=== PATIENT | female | born 1995 | race American Indian/Alaskan Native ===

== ENCOUNTER 2018-06-27 10:55 | Emergency (ER) | payer SELFPAY ==
--- NOTE | 2018-06-27 11:15 | Emergency Department Report ---
Chief Complaint: Extremity Injury, Lower Stated Complaint: PAIN ON (R) FOOT Time Seen by Provider: 06/27/18 11:13 - HPI History of Present Illness: SEEN AT [facility] SP FALL AND PAIN R LAT MAL AREA XRAY WAS NEG REFERRAL TO ORTHO DID NOT GO SHE STATES SWELLING DOWN BUT SHE WORKS LONG DAYS AND SHE WANTS TO BE SURE IT IS OK AMBULATORY. DP PLUS 2 FULL ROM NEEDS TO FOLLOW UP WITH ORTHO MSE COMPLETED - Exam Vital Signs: Vital Signs 06/27/18 11:03 Temperature 99.1 F Pulse Rate 87 Respiratory 18 Rate Blood Pressure 121/76 O2 Sat by Pulse 99 Oximetry MSE screening note: Focused history and physical exam performed. Due to findings the following was ordered: ED Disposition for MSE Condition: Stable
--- NOTE | 2018-06-27 12:31 | Emergency Department Report ---
HPI - General Chief Complaint: Extremity Injury, Lower Time Seen by Provider: 06/27/18 11:13 - HPI HPI: SEEN AT [facility] FALL AND PAIN R LAT MAL AREA XRAY WAS NEG REFERRAL TO ORTHO DID NOT GO SHE STATES SWELLING DOWN BUT SHE WORKS LONG DAYS AND SHE WANTS TO BE SURE IT IS OK AMBULATORY. DP PLUS 2 FULL ROM NEEDS TO FOLLOW UP WITH ORTHO ED Past Medical Hx - Past Medical History Previous Medical History?: No - Surgical History Past Surgical History?: No - Social History Smoking Status: Never Smoker Substance Use Type: None - Medications Home Medications: Home Medications Medication Instructions Recorded Confirmed Last Taken Type Ibuprofen [Motrin] 800 mg PO Q8HR PRN #10 tablet 06/27/18 Unknown Rx ED Review of Systems ROS: Stated complaint: PAIN ON (R) FOOT Other details as noted in HPI Comment: All other systems reviewed and negative Cardiovascular: denies: chest pain, palpitations Endocrine: denies: flushing Gastrointestinal: as per HPI. denies: abdominal pain Musculoskeletal: joint swelling. denies: myalgia Physical Exam - Physical Exam Vital Signs: Vital Signs 06/27/18 11:03 Temperature 99.1 F Pulse Rate 87 Respiratory 18 Rate Blood Pressure 121/76 O2 Sat by Pulse 99 Oximetry Physical Exam: Physical Exam: - General Limitations: No Limitations General appearance: alert, in no apparent distress. - Head Head exam: Present: atraumatic, normocephalic - Eye Eye exam: Present: normal appearance - ENT ENT exam: Present: mucous membranes moist - Neck Neck exam: Present: normal inspection - Respiratory Respiratory exam: Present: normal lung sounds bilaterally. Absent: respiratory distress - Cardiovascular Cardiovascular Exam: Present: normal rhythm. Absent: systolic murmur, diastolic murmur, rubs, gallop - GI/Abdominal GI/Abdominal exam: Present: soft, normal bowel sounds - Extremities Exam Extremities exam: Present: Right foot tenderness - Back Exam Back exam: Present: normal inspection - Neurological Exam Neurological exam: Present: alert, oriented X3 - Psychiatric Psychiatric exam: normal affect and mood - Skin Skin exam: Present: warm, dry, intact, normal color. Absent: rash ED Course Vital Signs 06/27/18 11:03 Temperature 99.1 F Pulse Rate 87 Respiratory 18 Rate Blood Pressure 121/76 O2 Sat by Pulse 99 Oximetry Critical care attestation.: If time is entered above; I have spent that time in minutes in the direct care of this critically ill patient, excluding procedure time. ED Disposition Clinical Impression: Contusion of right foot Qualifiers: Encounter type: initial encounter Qualified Code(s): S90.31XA - Contusion of right foot, initial encounter Disposition: TO HOME OR SELFCARE Is pt being admited?: No Does the pt Need Aspirin: No Condition: Stable Prescriptions: Ibuprofen [Motrin] 800 mg PO Q8HR PRN #10 tablet PRN Reason: Pain, Moderate (4-6) Referrals: ARNOLDO RAMIREZ MD [Primary Care Provider] - 3-5 Days
--- NOTE | 2018-06-27 13:03 | XRay Report ---
RIGHT FOOT, 3 views: History: Pain The bony architecture is intact. Bony alignment is normal. No soft tissue abnormalities are seen. The joint spaces appear preserved. IMPRESSION: Normal right foot.
[2018-06-27 20:45] VITALS: BP 121/76
== END 2018-06-27 13:07 | disposition home or self-care (01) ==
LOC: ED 10:55
DX: S90.31XA Contusion of right foot, initial encounter (principal); W01.198A Fall on same level from slipping, tripping and stumbling with subsequent striking against other object, initial encounter; Y93.89 Activity, other specified; Y92.89 Other specified places as the place of occurrence of the external cause; Y99.8 Other external cause status
CPT/HCPCS: 99283

== ENCOUNTER 2018-11-16 16:21 | Emergency (ER) | payer SELFPAY ==
--- NOTE | 2018-11-16 16:32 | Emergency Department Report ---
Blank Doc - Documentation Documentation: This is a 23-year-old female that was sent by [facility] for possible ectopic pregn tray. Stated is about 5 -6 weeks . Dneis any vaginal bleeding. This initial assessment/diagnostic orders/clinical plan/treatment(s) is/are subject to change based on patient's health status, clinical progression and re- assessment by fellow clinical providers in the ED. Further treatment and workup at subsequent clinical providers discretion. Patient/guardians urged not to elope from the ED as their condition may be serious if not clinically assessed and managed. Initial orders include: 1- Patient sent to [facility] for further evaluation and treatment 2- UA 3- labs 4- US OB
[2018-11-16 17:12] LABS: Basophils # (Auto) 0.1 K/mm3 (0.0-0.1); Basophils % (Auto) 0.5 % (0.0-1.8); Eosinophils # (Auto) 0.1 K/mm3 (0.0-0.4); Eosinophils % (Auto) 1.1 % (0.0-4.3); Hematocrit 37.4 % (30.3-42.9); Hemoglobin 12.7 gm/dl (10.1-14.3); Lymphocytes # (Auto) 4.3 K/mm3 (1.2-5.4); Lymphocytes % (Auto) 36.2 % (13.4-35.0); Mean Corpuscular HGB Conc 34 % (30-34); Mean Corpuscular Volume 78 fl (79-97); Monocytes # (Auto) 0.5 K/mm3 (0.0-0.8); Monocytes % (Auto) 4.1 % (0.0-7.3); Platelet Count 359 K/mm3 (140-440); Red Blood Count 4.83 M/mm3 (3.65-5.03); Red Cell Distribution Width 15.7 % (13.2-15.2)
[2018-11-16 17:27] LABS: BUN/Creatinine Ratio 10; Blood Urea Nitrogen 7 mg/dL (7-17); Calcium 9.3 mg/dL (8.4-10.2); Hemolysis Index 1
[2018-11-16 18:42] LABS: Bilirubin,Urine NEG (Negative); Blood,Urine NEG (Negative); Color,Urine Amber (Yellow); Mucus,Urine 3+ /HPF; Urobilinogen,Urine < 2.0 mg/dL (<2.0)
--- NOTE | 2018-11-16 19:09 | Ultrasound Report ---
At OB ultrasound FINDINGS: The uterus measures 7.4 x 3.5 x 4.5 cm and is empty. Endometrial stripe is normal at 1 cm. The right ovary measures 2.8 x 1.8 x 1.9 cm and is normal with the left ovary measuring 3.5 x 1.5 x 1 .6 cm. Left ovary is normal as well. No hemorrhage or free fluid. No abnormality seen. IMPRESSION: Negative pelvic ultrasound. No IUP or ectopic seen. Signer Name: Humberto Brown MD Signed: 11/16/2018 7:04 PM Workstation Name: [id number]
[2018-11-16] MEDS ORDERED: TYLENOL PO ONE (19:45)
--- NOTE | 2018-11-16 20:23 | Emergency Department Report ---
ED Abdominal Pain HPI - General Chief Complaint: Abdominal Pain Stated Complaint: LFT SIDE PELVIC PAIN/DOC ORDERED Time Seen by Provider: 11/16/18 16:31 Source: patient Mode of arrival: Ambulatory Limitations: No Limitations - History of Present Illness Initial Comments: Patient is A0 23 year-old female who is approximately 3 weeks gestation who presents to the ED with complaint of left lower quadrant abdominal pain for 2 days. Patient states that the pain is persistent and worse with any movement or palpation. Patient denies fever, chills, nausea, vomiting, diarrhea, dysuria, urinary frequency and urgency, vaginal discharge, vaginal bleeding, no back pain, dizziness, sore throat or cough and dyspareunia. Patient states that she was evaluated at these [facility] at [facility] and advised to come to the ED for evaluation and rule out ectopic . The patient states that she has not taken any medications for pain. MD Complaint: abdominal pain (LLQ ) -: Sudden, days(s) (2) Location: LLQ Migration to: no migration Severity scale (0 -10): 3 Quality: aching, dull Consistency: constant Improves With: nothing Worsens With: nothing Associated Symptoms: denies other symptoms. denies: nausea, vomiting, diarrhea, fever, chills, constipation, dysuria, hematemesis, hematochezia, melena, hematuria, anorexia, syncope - Related Data LMP Date: 10/12/18 Previous Rx's Medication Instructions Recorded Last Taken Type Ibuprofen [Motrin] 800 mg PO Q8HR PRN #10 tablet 06/27/18 Unknown Rx Acetaminophen [Acetaminophen TAB] 1,000 mg PO Q6HR PRN #20 tablet 11/16/18 Unknown Rx Allergies Allergy/AdvReac Type Severity Reaction Status Date / Time No Known Allergies Allergy Unverified 06/27/18 10:57 ED Review of Systems ROS: Stated complaint: LFT SIDE PELVIC PAIN/DOC ORDERED Other details as noted in HPI Constitutional: denies: chills, fever Eyes: denies: eye pain, eye discharge, vision change ENT: denies: ear pain, throat pain Respiratory: denies: cough, shortness of breath, wheezing Cardiovascular: denies: chest pain, palpitations Endocrine: no symptoms reported Gastrointestinal: abdominal pain (LLQ). denies: nausea, diarrhea Genitourinary: denies: urgency, dysuria, discharge Musculoskeletal: denies: back pain, joint swelling, arthralgia Skin: denies: rash, lesions Neurological: denies: headache, weakness, paresthesias Psychiatric: denies: anxiety, depression Hematological/Lymphatic: denies: easy bleeding, easy bruising ED Past Medical Hx - Past Medical History Previous Medical History?: No - Surgical History Past Surgical History?: No - Social History Smoking Status: Never Smoker Substance Use Type: None - Medications Home Medications: Home Medications Medication Instructions Recorded Confirmed Last Taken Type Ibuprofen [Motrin] 800 mg PO Q8HR PRN #10 tablet 06/27/18 Unknown Rx Acetaminophen [Acetaminophen TAB] 1,000 mg PO Q6HR PRN #20 tablet 11/16/18 Unknown Rx ED Physical Exam - General Limitations: No Limitations General appearance: alert, in no apparent distress - Head Head exam: Present: atraumatic, normocephalic, normal inspection - Eye Eye exam: Present: normal appearance, PERRL, EOMI Pupils: Present: normal accommodation - ENT ENT exam: Present: normal exam, normal orophraynx, mucous membranes moist, TM's normal bilaterally, normal external ear exam - Neck Neck exam: Present: normal inspection - Respiratory Respiratory exam: Present: normal lung sounds bilaterally. Absent: respiratory distress, wheezes, rales, rhonchi, chest wall tenderness, accessory muscle use, decreased breath sounds, prolonged expiratory - Cardiovascular Cardiovascular Exam: Present: normal rhythm, tachycardia, normal heart sounds. Absent: systolic murmur, diastolic murmur, rubs, gallop - GI/Abdominal GI/Abdominal exam: Present: soft, tenderness (Mildly tender LLQ area on palpation, no guarding or rebound), normal bowel sounds - Rectal Rectal exam: Present: deferred - Extremities Exam Extremities exam: Present: normal inspection, full ROM, normal capillary refill - Back Exam Back exam: Present: normal inspection, full ROM. Absent: tenderness, CVA tenderness (R), CVA tenderness (L), muscle spasm, paraspinal tenderness - Neurological Exam Neurological exam: Present: alert, oriented X3, CN II-XII intact, normal gait, reflexes normal - Psychiatric Psychiatric exam: Present: normal affect, normal mood - Skin Skin exam: Present: warm, dry, intact, normal color. Absent: rash ED Course Vital Signs 11/16/18 16:31 Temperature 99.1 F Pulse Rate 123 H Respiratory 18 Rate Blood Pressure 140/86 [Left] O2 Sat by Pulse 100 Oximetry - Reevaluation(s) Reevaluation #1: 11/16/18 20:34 This is a 23-year-old female who is currently approximately 3 weeks gestation who presented to the ED with complaint of left lower quadrant abdominal pain. In the ED, patient is alert and oriented 3 and is in distress, although tachycardic in triage. Lab test results were reviewed and shows hCG Quant of 747.7, acute leukocytosis of 12,000 and mild hypokalemia of 3.2 mmol per liter. The rest of the lab test results are unremarkable and not nonactionable including urinalysis. Patient was treated for pain in the ED with Tylenol. Pelvic ultrasound and transvaginal ultrasound show normal blood flow in both ovaries and normal endometrial stripe. There is no IUP or ectopic seen due to the fact that the is still too early since the last menstrual period was 10/12/2018. On reevaluation, patient's pain is well controlled with medications, and tachycardia resolved with treatment in the ED. Patient was discharged home and advised to maintain a complete pelvic rest and to return to the ED or to the [facility] physician in 48 hours for repeat of the hCG Quant studies planned. Patient was otherwise advised to follow up with the [facility] physician in 3-5 days for reevaluation or return to the ED immediately if symptoms get worse. 11/16/18 20:39 ED Medical Decision Making - Lab Data Result diagrams: 11/16/18 03:53 11/16/18 16:51 - Radiology Data Radiology results: report reviewed, image reviewed Findings [address] [address] Ultrasound Report Signed Patient: DANNY FRANCO MR#: [id number] : 1995 Acct:[id number] Age/Sex: 23 / F ADM Date: 11/16/18 Loc: ED Attending Dr: Ordering Physician: LINDEN ESPAÑA NP Date of Service: 11/16/18 Procedure(s): US OB transvaginal Accession Number(s): [id number] cc: LINDEN ESPAÑA NP At OB ultrasound FINDINGS: The uterus measures 7.4 x 3.5 x 4.5 cm and is empty. Endometrial stripe is normal at 1 cm. The right ovary measures 2.8 x 1.8 x 1.9 cm and is normal with the left ovary measuring 3.5 x 1.5 x 1.6 cm. Left ovary is normal as well. No hemorrhage or free fluid. No abnormality seen. IMPRESSION: Negative pelvic ultrasound. No IUP or ectopic seen. Signer Name: Humberto Brown MD Signed: 11/16/2018 7:04 PM Workstation Name: [id number] Transcribed By: JM Dictated By: Humberto Brown MD Electronically Authenticated By: Humberto Brown MD Signed Date/Time: 11/16/181903 DD/ 02 TD/TT: Findings [facility] [address] [place] [address] Ultrasound Report Signed Patient: DANNY FRANCO MR#: [id number] : 1995 Acct:[id number] Age/Sex: 23 / F ADM Date: 11/16/18 Loc: ED Attending Dr: Ordering Physician: LINDEN ESPAÑA NP Date of Service: 11/16/18 Procedure(s): US OB <= 14 weeks fetus Accession Number(s): [id number] cc: LINDEN ESPAÑA NP At OB ultrasound FINDINGS: The uterus measures 7.4 x 3.5 x 4.5 cm and is empty. Endometrial stripe is normal at 1 cm. The right ovary measures 2.8 x 1.8 x 1.9 cm and is normal with the left ovary measuring 3.5 x 1.5 x 1.6 cm. Left ovary is normal as well. No hemorrhage or free fluid. No abnormality seen. IMPRESSION: Negative pelvic ultrasound. No IUP or ectopic seen. Signer Name: Humberto Brown MD Signed: 11/16/2018 7:04 PM Workstation Name: [id number] Transcribed By: LAKESHA Dictated By: Humberto Brown MD Electronically Authenticated By: Humberto Brown MD Signed Date/Time: 11/16/181903 - Medical Decision Making This is a 23-year-old female who is currently approximately 3 weeks gestation who presented to the ED with complaint of left lower quadrant abdominal pain. In the ED, patient is alert and oriented 3 and is in distress, although tachycardic in triage. Lab test results were reviewed and shows hCG Quant of 747.7, acute leukocytosis of 12,000 and mild hypokalemia of 3.2 mmol per liter. The rest of the lab test results are unremarkable and not nonactionable includi ng urinalysis. Patient was treated for pain in the ED with Tylenol. Pelvic ultrasound and transvaginal ultrasound show normal blood flow in both ovaries and normal endometrial stripe. There is no IUP or ectopic seen due to the fact that the is still too early since the last menstrual period was 10/12/2018. On reevaluation, patient's pain is well controlled with medications and tachycardia resolved with treatment in the ED. Patient was discharged home and advised to maintain a complete pelvic rest and to return to the ED or to the [facility] physician in 48 hours for repeat of the hCG Quant studies planned. Patient was otherwise advised to follow up with the [facility] physician in 3-5 days for reevaluation or return to the ED immediately if symptoms get worse. - Differential Diagnosis Ectopic ; Ovarian cyst; Abdominal pain; UTI Critical care attestation.: If time is entered above; I have spent that time in minutes in the direct care of this critically ill patient, excluding procedure time. ED Disposition Clinical Impression: Abdominal pain during in first trimester, at early stage Disposition: DC-01 TO HOME OR SELFCARE Is pt being admited?: No Does the pt Need Aspirin: No Condition: Stable Instructions: Abdominal Pain (ED), (ED) Additional Instructions: Maintain a complete pelvic rest, take Tylenol as needed for pain. Return to the ED in 48 hours for repeat hCG Quant. Follow-up with the [facility] physician in 7- 10 days for reevaluation. Prescriptions: Acetaminophen [Acetaminophen TAB] 1,000 mg PO Q6HR PRN #20 tablet PRN Reason: Pain , Severe (7-10) Referrals: ELOY GUTIERREZ MD [Staff Physician] - 3-5 Days Time of Disposition: 20:20 Print Language: SINGAPOREAN
[2018-11-16 20:45] VITALS: BP 120/68
== END 2018-11-16 20:43 | disposition home or self-care (01) ==
LOC: ED 16:21
DX: O26.891 Other specified pregnancy related conditions, first trimester (principal); R10.2 Pelvic and perineal pain; Z3A.01 Less than 8 weeks gestation of pregnancy
CPT/HCPCS: 36415; 76801; 76817; 80048; 81001; 84702; 85025

== ENCOUNTER 2018-11-18 19:49 | Emergency (ER) | payer SELFPAY ==
[2018-11-18 20:36] VITALS: BP 126/53
[2018-11-18] MEDS ORDERED: TYLENOL PO ONE (21:18)
[2018-11-18 21:41] LABS: Basophils # (Auto) 0.1 K/mm3 (0.0-0.1); Basophils % (Auto) 0.7 % (0.0-1.8); Eosinophils # (Auto) 0.1 K/mm3 (0.0-0.4); Eosinophils % (Auto) 1.2 % (0.0-4.3); Hematocrit 36.9 % (30.3-42.9); Hemoglobin 12.5 gm/dl (10.1-14.3); Lymphocytes % (Auto) 38.4 % (13.4-35.0); Mean Corpuscular HGB Conc 34 % (30-34); Mean Corpuscular Volume 78 fl (79-97); Monocytes # (Auto) 0.6 K/mm3 (0.0-0.8); Monocytes % (Auto) 5.3 % (0.0-7.3); Platelet Count 338 K/mm3 (140-440); Red Blood Count 4.72 M/mm3 (3.65-5.03); Red Cell Distribution Width 15.8 % (13.2-15.2)
[2018-11-18 22:05] LABS: Alanine Aminotransferase 11 units/L (7-56); Albumin 3.6 g/dL (3.9-5); BUN/Creatinine Ratio 7; Blood Urea Nitrogen 5 mg/dL (7-17); Calcium 9.3 mg/dL (8.4-10.2); Hemolysis Index 4
[2018-11-18 22:07] LABS: Bilirubin,Urine NEG (Negative); Blood,Urine MOD (Negative); Color,Urine Yellow (Yellow); Protein,Urine <15 mg/dL mg/dL (Negative); Urobilinogen,Urine < 2.0 mg/dL (<2.0)
--- NOTE | 2018-11-18 22:40 | Ultrasound Report ---
US OB transvaginal INDICATION / CLINICAL INFORMATION: abdominal pain. COMPARISON: None available. FINDINGS: Single, very small gestational sac is demonstrated in the endometrial canal, measuring 3.4 mm, corres ponding to a gestational age of 5 weeks 0 days. No pole is demonstrated at this very early stag e. Ovaries are negative. No free fluid. IMPRESSION: 1. Questionable very early intrauterine gestational sac. Suggest reexamination in 5-7 days. Signer Name: Sesar Cedillo MD Signed: 11/18/2018 10:36 PM Workstation Name: [email or web address]
--- NOTE | 2018-11-18 23:36 | Emergency Department Report ---
ED Abdominal Pain HPI - General Chief Complaint: Abdominal Pain Stated Complaint: CHECK UP Time Seen by Provider: 11/18/18 20:31 Source: patient Mode of arrival: Ambulatory Limitations: No Limitations - History of Present Illness Initial Comments: Patient is a A0 23 yo AA female who is approximately 5 weeks gestation and presented to the ED with complaint of persistent left lower quadrant pain and for repeat HCG quant after being diagnosed with with low hcg quant 2 days ago. Patient states that the left lower quadrant abdominal pain has been persistent tenderness in the left flank and left hip. Patient states that the last time she took Tylenol was over 12 hours ago. Patient denies nausea, vomiting, vaginal bleeding, fever, chills, headache, chest pain, shortness of breath, dysuria, urinary frequency and urgency and no discharge. MD Complaint: abdominal pain -: Sudden, week(s) (1) Location: LLQ Radiation: L flank, back, other (left hip) Migration to: no migration Severity: severe Severity scale (0 -10): 8 Quality: cramping, aching, sharp Consistency: constant Improves With: nothing Worsens With: nothing Associated Symptoms: denies other symptoms. denies: nausea, vomiting, diarrhea, fever, chills, constipation, hematochezia, melena, hematuria, anorexia - Related Data LMP Date: 10/12/18 Previous Rx's Medication Instructions Recorded Last Taken Type Ibuprofen [Motrin] 800 mg PO Q8HR PRN #10 tablet 06/27/18 Unknown Rx Acetaminophen [Acetaminophen TAB] 1,000 mg PO Q6HR PRN #20 tablet 11/18/18 Unknown Rx Allergies Allergy/AdvReac Type Severity Reaction Status Date / Time No Known Allergies Allergy Unverified 06/27/18 10:57 ED Review of Systems ROS: Stated complaint: CHECK UP Other details as noted in HPI Constitutional: denies: chills, fever Eyes: denies: eye pain, eye discharge, vision change ENT: denies: ear pain, throat pain Respiratory: denies: cough, shortness of breath, wheezing Cardiovascular: denies: chest pain, palpitations Endocrine: no symptoms reported Gastrointestinal: abdominal pain (LLQ ). denies: nausea, vomiting, diarrhea, constipation, hematemesis Genitourinary: denies: urgency, dysuria, discharge Musculoskeletal: back pain (lower back), arthralgia (left hip pain; ). denies: joint swelling Skin: denies: rash, lesions Neurological: denies: headache, weakness, paresthesias Psychiatric: denies: anxiety, depression Hematological/Lymphatic: denies: easy bleeding, easy bruising ED Past Medical Hx - Past Medical History Previous Medical History?: Yes Additional medical history: Obesity - Surgical History Past Surgical History?: No - Social History Smoking Status: Never Smoker Substance Use Type: None - Medications Home Medications: Home Medications Medication Instructions Recorded Confirmed Last Taken Type Ibuprofen [Motrin] 800 mg PO Q8HR PRN #10 tablet 06/27/18 Unknown Rx Acetaminophen [Acetaminophen TAB] 1,000 mg PO Q6HR PRN #20 tablet 11/18/18 Unknown Rx ED Physical Exam - General Limitations: No Limitations General appearance: alert, in no apparent distress - Head Head exam: Present: atraumatic, normocephalic, normal inspection - Eye Eye exam: Present: normal appearance, PERRL, EOMI. Absent: scleral icterus, conjunctival injection, nystagmus, periorbital swelling, periorbital tenderness Pupils: Present: normal accommodation - ENT ENT exam: Present: normal exam, normal orophraynx, mucous membranes moist, TM's normal bilaterally, normal external ear exam - Neck Neck exam: Present: normal inspection, full ROM. Absent: tenderness, meningism us, lymphadenopathy, thyromegaly - Respiratory Respiratory exam: Present: normal lung sounds bilaterally. Absent: respiratory distress, wheezes, rales, rhonchi, stridor, chest wall tenderness, accessory muscle use, decreased breath sounds, prolonged expiratory - Cardiovascular Cardiovascular Exam: Present: regular rate, normal rhythm, normal heart sounds. Absent: systolic murmur, diastolic murmur, rubs, gallop - GI/Abdominal GI/Abdominal exam: Present: soft, tenderness (LLQ), normal bowel sounds. Absent: guarding, rebound, hyperactive bowel sounds, hypoactive bowel sounds, organomegaly, mass - Rectal Rectal exam: Present: deferred - Extremities Exam Extremities exam: Present: normal inspection, full ROM, normal capillary refill - Back Exam Back exam: Present: normal inspection, full ROM. Absent: tenderness, CVA tenderness (R), CVA tenderness (L), muscle spasm, paraspinal tenderness, vertebral tenderness - Neurological Exam Neurological exam: Present: alert, oriented X3, CN II-XII intact, normal gait, reflexes normal - Psychiatric Psychiatric exam: Present: normal affect, normal mood - Skin Skin exam: Present: warm, dry, intact, normal color. Absent: rash ED Course Vital Signs 11/18/18 11/18/18 20:32 22:13 Temperature 98.1 F Pulse Rate 108 H Respiratory 16 16 Rate Blood Pressure 126/53 O2 Sat by Pulse 98 Oximetry - Reevaluation(s) Reevaluation #1: 11/18/18 23:40 This is a 23-year-old G1POA0 female who presented to the ED with left lower quadrant pain and for repeat hCG Quant studies, initially tested 2 days ago and it was 747. In the ED, patient is alert and oriented 3 and is not in distress. Patient was treated for an EGD lab test result shows hCG Quant of 1877. Other laboratory results are unremarkable. The transvaginal ultrasound shows a single, very small gestational sac is demonstrated in the endometrial canal, measuring 3.4 mm, corresponding to a gestational age of 5 weeks 0 days. No pole is demonstrated at this very early stage. Compared to the previous visits ultrasound findings, these findings show that there is not only an IUP but this is a Quant done by me also shows that the is viable. Patient was discharged home and advised to maintain a complete pelvic rest and to take Tylenol as needed for pain. Patient is advised to follow-up with [facility] physician in 5-7 days for reevaluation. Patient is a resident of a immediately if symptoms get worse especially if she develops vaginal bleeding, fever, chills, nausea and vomiting or worsening pain. ED Medical Decision Making - Lab Data Result diagrams: 11/18/18 21:21 11/18/18 21:21 - Radiology Data Radiology results: report reviewed, image reviewed Findings [facility] [address] [place] [address] Ultrasound Report Signed Patient: DANNY FRANCO MR#: [id number] : 1995 Acct:[id number] Age/Sex: 23 / F ADM Date: 11/18/18 Loc: ED Attending Dr: Ordering Physician: MARJ COSME Date of Service: 11/18/18 Procedure(s): US OB transvaginal Accession Number(s): [id number] cc: MARJ COSME OB transvaginal INDICATION / CLINICAL INFORMATION: abdominal pain. COMPARISON: None available. FINDINGS: Single, very small gestational sac is demonstrated in the endometrial canal, measuring 3.4 mm, corresponding to a gestational age of 5 weeks 0 days. No pole is demonstrated at this very early stage. Ovaries are negative. No free fluid. IMPRESSION: 1. Questionable very early intrauterine gestational sac. Suggest reexamination in 5-7 days. Signer Name: Sesar Cedillo MD Signed: 11/18/2018 10:36 PM Workstation Name: [id number] Transcribed By: TM Dictated By: Sesar Cedillo MD Electronically Authenticated By: Sesar Cedillo MD Signed Date/Time: 11/18/18 194 - Medical Decision Making This is a 23-year-old G1POA0 female who presented to the ED with left lower quadrant pain and for repeat hCG Quant studies, initially tested 2 days ago and it was 747. In the ED, patient is alert and oriented 3 and is not in distress. Patient was treated for an EGD lab test result shows hCG Quant of 1877. Other laboratory results are unremarkable. The transvaginal ultrasound shows a s stephanie, very small gestational sac is demonstrated in the endometrial canal, measuring 3.4 mm, corresponding to a gestational age of 5 weeks 0 days. No pole is demonstrated at this very early stage. Compared to the previous visits ultrasound findings, these findings show that there is not only an IUP but this is a Quant done by me also shows that the is viable. Patient was discharged home and advised to maintain a complete pelvic rest and to take Tylenol as needed for pain. Patient is advised to follow-up with [facility] physician in 5-7 days for reevaluation. Patient is a resident of a immediately if symptoms get worse especially if she develops vaginal bleeding, fever, chill s, nausea and vomiting or worsening pain. - Differential Diagnosis Ectopic ; Threatened miscarriage; Acute UTI; abdominal pain Critical care attestation.: If time is entered above; I have spent that time in minutes in the direct care of this critically ill patient, excluding procedure time. ED Disposition Clinical Impression: Abdominal pain during in first trimester, at early stage Disposition: -01 TO HOME OR SELFCARE Is pt being admited?: No Does the pt Need Aspirin: No Condition: Stable Instructions: Abdominal Pain (ED), (ED) Additional Instructions: Maintain a complete pelvic rest, take medications as needed for pain, drink plenty of fluids and follow-up with the [facility] physician advised in 5-7 days for reevaluation. Return to the ED immediately if symptoms get worse. Prescriptions: Acetaminophen [Acetaminophen TAB] 1,000 mg PO Q6HR PRN #20 tablet PRN Reason: Pain , Severe (7-10) Referrals: ZACHARIAH DAWSON MD [Staff Physician] - 7-10 days Time of Disposition: 23:47 Print Language: ALBANIAN
== END 2018-11-19 01:31 | disposition home or self-care (01) ==
LOC: ED 19:49
DX: O26.891 Other specified pregnancy related conditions, first trimester (principal); Z79.899 Other long term (current) drug therapy; E66.9 Obesity, unspecified; Z68.43 Body mass index [BMI] 50.0-59.9, adult; M54.5 Low back pain; M25.552 Pain in left hip; Z3A.01 Less than 8 weeks gestation of pregnancy
CPT/HCPCS: 36415; 76817; 80053; 81001; 84702; 85025; 86900; 86901; 99284

== ENCOUNTER 2018-12-07 00:07 | Emergency (ER) | payer MEDICAID, OTHER ==
[2018-12-07 00:48] LABS: Basophils # (Auto) 0.1 K/mm3 (0.0-0.1); Basophils % (Auto) 0.7 % (0.0-1.8); Eosinophils # (Auto) 0.1 K/mm3 (0.0-0.4); Eosinophils % (Auto) 0.6 % (0.0-4.3); Hematocrit 37.6 % (30.3-42.9); Hemoglobin 12.4 gm/dl (10.1-14.3); Lymphocytes % (Auto) 33.4 % (13.4-35.0); Mean Corpuscular HGB Conc 33 % (30-34); Mean Corpuscular Volume 80 fl (79-97); Monocytes # (Auto) 0.7 K/mm3 (0.0-0.8); Monocytes % (Auto) 5.6 % (0.0-7.3); Platelet Count 327 K/mm3 (140-440); Red Blood Count 4.72 M/mm3 (3.65-5.03); Red Cell Distribution Width 16.8 % (13.2-15.2)
--- NOTE | 2018-12-07 03:48 | Ultrasound Report ---
ULTRASOUND OBSTETRIC Indication: vag bleed, pain Findings: There is a single, living intrauterine . [place]-rump length = 0.85 cm = 6 weeks, 6 day(s). heart rate is 149 beats per minute. The ovaries are normal. There is no free fluid. Impression: Single, living intrauterine with estimated sonographic age of 6 weeks, 6 day(s). Signer Name: Ethan العراقي MD Signed: 12/07/2018 3:44 AM Workstation Name: [id number]
--- NOTE | 2018-12-07 03:48 | Ultrasound Report ---
ULTRASOUND OBSTETRIC Indication: vag bleed, pain Findings: There is a single, living intrauterine . [place]-rump length = 0.85 cm = 6 weeks, 6 day(s). heart rate is 149 beats per minute. The ovaries are normal. There is no free fluid. Impression: Single, living intrauterine with estimated sonographic age of 6 weeks, 6 day(s). Signer Name: Ethan العراقي MD Signed: 12/07/2018 3:44 AM Workstation Name: [id number]
[2018-12-07 04:01] VITALS: BP 121/78
--- NOTE | 2018-12-07 04:04 | Emergency Department Report ---
ED HPI - General Chief complaint: Vaginal Bleeding Stated complaint: PREG 7 WKS/VAG BLEEDING Time Seen by Provider: 12/07/18 03:49 Source: patient Mode of arrival: Ambulatory Limitations: No Limitations - History of Present Illness Initial comments: This is a 23-year-old female nontoxic, well nourished in appearance, no acute signs of distress presents to the ED with c/o of vaginal bleeding and pelvic craming x1 day. Patient stated yesterday she noticed some spotting but today has resolved. Patient denies any abdominal pain. Patient denies any vaginal discharge or foul odor. Patient denies any nausea, vomiting, chest pain, shortness of breathe, fever, chills, headache, stiff neck, numbness, tingling. Patient denies any urinary symptoms. Patient denies any allergies or PMH. MD Complaint: vaginal bleeding, other (pelvic pain) -: days(s) (1) Location: pelvis Radiation: none Severity: mild Severity scale (0 -10): 3 Quality: cramping, aching Consistency: constant Improves with: none Worsens with: none Associated symptoms: vaginal bleeding. denies: nausea/vomiting, vaginal discharge, abdominal pain, dysuria, headache, vision changes, malaise, dysparue kenna, rash, seizure, shortness of breath, syncope, weakness Vaginal bleeding: light :: Yes Number of weeks : 6 Pre-valentin care: none - Related Data Previous Rx's Medication Instructions Recorded Last Taken Type Ibuprofen [Motrin] 800 mg PO Q8HR PRN #10 tablet 06/27/18 Unknown Rx Acetaminophen [Acetaminophen TAB] 1,000 mg PO Q6HR PRN #20 tablet 11/18/18 Unknown Rx Allergies Allergy/AdvReac Type Severity Reaction Status Date / Time No Known Allergies Allergy Unverified 06/27/18 10:57 ED Review of Systems ROS: Stated complaint: PREG 7 WKS/VAG BLEEDING Other details as noted in HPI Constitutional: denies: chills, fever Eyes: denies: eye pain, eye discharge, vision change ENT: denies: ear pain, throat pain Respiratory: denies: cough, shortness of breath, wheezing Cardiovascular: denies: chest pain, palpitations Endocrine: no symptoms reported Gastrointestinal: denies: abdominal pain, nausea, diarrhea Genitourinary: abnormal menses. denies: urgency, dysuria, discharge Musculoskeletal: denies: back pain, joint swelling, arthralgia Skin: denies: rash, lesions Neurological: denies: headache, weakness, paresthesias Psychiatric: denies: anxiety, depression Hematological/Lymphatic: denies: easy bleeding, easy bruising ED Past Medical Hx - Past Medical History Additional medical history: Obesity - Social History Smoking Status: Never Smoker Substance Use Type: None - Medications Home Medications: Home Medications Medication Instructions Recorded Confirmed Last Taken Type Ibuprofen [Motrin] 800 mg PO Q8HR PRN #10 tablet 06/27/18 Unknown Rx Acetaminophen [Acetaminophen TAB] 1,000 mg PO Q6HR PRN #20 tablet 11/18/18 Unknown Rx ED Physical Exam - General Limitations: No Limitations General appearance: alert, in no apparent distress - Head Head exam: Present: atraumatic, normocephalic - Neck Neck exam: Present: normal inspection, full ROM. Absent: tenderness, meningismus, lymphadenopathy - Respiratory Respiratory exam: Present: normal lung sounds bilaterally - GI/Abdominal GI/Abdominal exam: Present: soft, normal bowel sounds. Absent: distended, tenderness, guarding, rebound, rigid, diminished bowel sounds - Extremities Exam Extremities exam: Present: normal inspection, full ROM - Back Exam Back exam: Present: normal inspection, full ROM. Absent: tenderness, CVA tenderness (R), CVA tenderness (L), muscle spasm, paraspinal tenderness, vertebral tenderness, rash noted - Neurological Exam Neurological exam: Present: alert, oriented X3, normal gait - Psychiatric Psychiatric exam: Present: normal affect, normal mood - Skin Skin exam: Present: warm, dry, intact, normal color. Absent: rash ED Course - Reevaluation(s) Reevaluation #1: 12/07/18 04:02 Patient is speaking in full sentences with no signs of distress noted. ED Medical Decision Making - Lab Data Result diagrams: 12/07/18 00:19 - Medical Decision Making This is a 23-year-old female presents with threatened miscarriage. Patient is stable and was examined by me. Normal abdominal exam. US OB obtained and dictated by the radiologist. Ua obtained. Quantative serum test obtained. Patient notified of the US report with no questions noted by the patient. Patient was instructed f/u with [facility] in 3-5 days. RH factor positive. Labs within normal limits. At time of discharge, the patient does not seem toxic or ill in appearance. No acute signs of distress noted. Patient agrees to discharge treatment plan of care. No further questions noted by the patient. Critical care attestation.: If time is entered above; I have spent that time in minutes in the direct care of this critically ill patient, excluding procedure time. ED Disposition Clinical Impression: Threatened miscarriage Disposition: DC- TO HOME OR SELFCARE Is pt being admited?: No Does the pt Need Aspirin: No Condition: Stable Instructions: Threatened Miscarriage (ED) Additional Instructions: Follow-up with a OBGYN doctor in 3-5 days or if symptoms worsen and continue return to emergency room as soon as possible. Referrals: [facility] [Other] - 3-5 Days [facility] [Referring] - 3-5 Days EFREM DAWSON MD [Staff Physician] - 3-5 Days [facility] [Provider Group] - 3-5 Days Forms: Work/School Release Form(ED)
== END 2018-12-07 04:10 | disposition home or self-care (01) ==
LOC: ED 00:07
DX: O20.0 Threatened abortion (principal); Z3A.01 Less than 8 weeks gestation of pregnancy
CPT/HCPCS: 36415; 76801; 76817; 84702; 85025; 86900; 86901